=== PATIENT | female | born 1985 | race Asian ===

== ENCOUNTER 2020-12-09 22:30 | Inpatient (IN) | payer OTHER ==
[2020-12-09] MEDS ORDERED: DEXTROSE 5%-LACTATED RINGERS 1,000 ML IV SCH (23:15)
[2020-12-10 00:16] VITALS: BMI 23.6
[2020-12-10 00:22] LABS: BASO % 0.4 % (0-2.0); EOS % 1.2 % (0-4.5); HEMATOCRIT 32.2 % (32.4-45.2); HEMOGLOBIN 10.4 GM/dL (10.7-15.3); LYMPH % 29.3 % (8-40); MCH 20.9 pg (25.7-33.7); MCHC 32.2 g/dl (32.0-36.0); MEAN CELL VOLUME 64.8 fl (80-96); MEAN PLT VOLUME 8.8 fl (7.5-11.1); MONO % 9.6 % (3.8-10.2); NEUT % 59.5 % (42.8-82.8); PLATELET COUNT 205 10^3/uL (134-434); RBC 4.97 M/mm3 (3.60-5.2); RDW 15.9 % (11.6-15.6); WHITE BLOOD COUNT 9.7 K/mm3 (4.0-10.0)
[2020-12-10 00:30] LABS: INR 0.96 (0.83-1.09); PROTHROMBIN TIME (PATIENT) 10.7 SEC (9.7-13.0)
[2020-12-10 00:43] LABS: CALCIUM 8.5 mg/dL (8.5-10.1)
[2020-12-10] MEDS ORDERED: OXYTOCIN 30 UNITS in 0.9% NS 30 UNIT/500 ML INFUS.BAG IVPB SCH (00:45)
[2020-12-10 00:47] LABS: CREATININE 0.6 mg/dL (0.55-1.3)
[2020-12-10] MEDS ORDERED: ELECTROLYTE-148 SOLN 1,000 ML IV SCH (08:15)
[2020-12-10 09:40] LABS: POC NITRAZINE POS
[2020-12-10] MEDS ORDERED: ONDANSETRON 4 MG/2 ML VIAL IVPUSH PRN (10:35)
[2020-12-10] MEDS ORDERED: morphine SULFATE/PF 1 MG/2 ML (2cc Syringe - QUVA) EP ONE (10:35)
[2020-12-10] MEDS ORDERED: morphine SULFATE (PF) 1 MG/2 ML SYRINGE ONE (10:52)
[2020-12-10] MEDS ORDERED: ceFAZolin SODIUM 1 GM VIAL ONE ×2 (10:53→18:18)
[2020-12-10] MEDS ORDERED: METHYLERGONOVINE MALEATE 0.2 MG/1 ML AMP IM PRN (11:04)
[2020-12-10] MEDS ORDERED: IBUPROFEN 800 MG/8 ML IJ IVPB PRN (11:04)
[2020-12-10] MEDS ORDERED: PHENYLEPHRINE HCL 10 MG/1 ML SINGLE DOSE VIAL ONE (11:14)
[2020-12-10] MEDS ORDERED: OXYTOCIN 10 UNIT/ML 10ML MDV ONE (11:19)
[2020-12-10] MEDS ORDERED: MEPERIDINE HCL 50 MG/ML VIAL ONE (11:43)
[2020-12-10] MEDS ORDERED: ONDANSETRON 4 MG/2 ML VIAL ONE (11:50)
[2020-12-10] MEDS ORDERED: KETOROLAC TROMETHAMINE 30 MG/1 ML VIAL ONE (11:50)
[2020-12-10 12:24] LABS: CORD BASE EXCESS -3.4 mmol/L (0-2); CORD HCO3 22.1 mmHg (20-29); CORD PCO2 41.7 mmHg (30-78); CORD pH 7.343 (7.14-7.44)
[2020-12-10 12:39] LABS: CORD BASE EXCESS -3.7 mmol/L (0-2); CORD HCO3 24.7 mmHg (20-29); CORD PCO2 58.6 mmHg (30-78); CORD pH 7.242 (7.14-7.44)
[2020-12-10] MEDS ORDERED: CITRIC ACID/SODIUM CITRATE 30 ML UNIT-DOSE CUP PO ONE (14:00)
[2020-12-10] MEDS ORDERED: OXYTOCIN 20 UNITS in 0.9% NS 20 UNIT/1,000 ML INFUS.BAG IV ONE (14:28)
[2020-12-10] MEDS ORDERED: DEXTROSE 5%-WATER - 50 ML IVPB ONE (18:18)
[2020-12-10] MEDS: CEFAZOLIN 1 GM in DEXTROSE 5%-WATER - 1 GM/50 ML IVPB IVPB SCH (18:26)
[2020-12-11] MEDS ORDERED: DEXTROSE 5%-WATER - 50 ML IVPB ONE ×2 (01:01→09:41)
[2020-12-11] MEDS ORDERED: ceFAZolin SODIUM 1 GM VIAL ONE ×2 (01:01→09:41)
[2020-12-11] MEDS: CEFAZOLIN 1 GM in DEXTROSE 5%-WATER - 1 GM/50 ML IVPB IVPB SCH ×2 (01:20→09:46)
[2020-12-11 07:57] LABS: BASO % 0.7 % (0-2.0); EOS % 1.3 % (0-4.5); HEMATOCRIT 30.1 % (32.4-45.2); HEMOGLOBIN 9.6 GM/dL (10.7-15.3); LYMPH % 13.5 % (8-40); MCH 20.7 pg (25.7-33.7); MCHC 31.7 g/dl (32.0-36.0); MEAN CELL VOLUME 65.4 fl (80-96); MEAN PLT VOLUME 8.7 fl (7.5-11.1); MONO % 5.3 % (3.8-10.2); NEUT % 79.2 % (42.8-82.8); PLATELET COUNT 182 10^3/uL (134-434); RDW 15.7 % (11.6-15.6); WHITE BLOOD COUNT 12.3 K/mm3 (4.0-10.0)
[2020-12-11] MEDS: IBUPROFEN 600 MG TABLET (FP) PO PRN ×3 (08:22→21:22)
[2020-12-11] MEDS: SIMETHICONE 80 MG TAB.CHEW (FP) PO PRN ×2 (08:22→15:12)
[2020-12-11] MEDS: ENOXAPARIN NA (PORCINE) 40 MG/0.4 ML DISP.SYRIN SQ SCH (09:46)
[2020-12-11] MEDS: PRENATAL VITAMINS W/ FOLIC ACID TABLET (FP) PO SCH (09:46)
[2020-12-11] MEDS ORDERED: BISACODYL 10 MG SUPP.RECT RC PRN (11:04)
[2020-12-12] MEDS: PRENATAL VITAMINS W/ FOLIC ACID TABLET (FP) PO SCH (10:25)
[2020-12-12] MEDS: ENOXAPARIN NA (PORCINE) 40 MG/0.4 ML DISP.SYRIN SQ SCH (10:27)
[2020-12-12] MEDS: SIMETHICONE 80 MG TAB.CHEW (FP) PO PRN ×2 (10:59→22:36)
[2020-12-12] MEDS: IBUPROFEN 600 MG TABLET (FP) PO PRN ×2 (10:59→22:36)
[2020-12-13 08:36] LABS: BASO % 0.4 % (0-2.0); EOS % 1.9 % (0-4.5); HEMATOCRIT 28.4 % (32.4-45.2); HEMOGLOBIN 9.2 GM/dL (10.7-15.3); LYMPH % 18.6 % (8-40); MCH 21.2 pg (25.7-33.7); MCHC 32.4 g/dl (32.0-36.0); MEAN CELL VOLUME 65.6 fl (80-96); MEAN PLT VOLUME 9.1 fl (7.5-11.1); MONO % 6.8 % (3.8-10.2); NEUT % 72.3 % (42.8-82.8); PLATELET COUNT 221 10^3/uL (134-434); RBC 4.33 M/mm3 (3.60-5.2); RDW 15.7 % (11.6-15.6); WHITE BLOOD COUNT 10.1 K/mm3 (4.0-10.0)
[2020-12-13] MEDS: ENOXAPARIN NA (PORCINE) 40 MG/0.4 ML DISP.SYRIN SQ SCH (09:45)
[2020-12-13] MEDS: IBUPROFEN 600 MG TABLET (FP) PO PRN ×3 (09:45→22:15)
[2020-12-13] MEDS: PRENATAL VITAMINS W/ FOLIC ACID TABLET (FP) PO SCH (09:45)
[2020-12-13 12:04] LABS: ANISOCYTOSIS 1+; MACROCYTOSIS 0; OVALOCYTE 1+; PLATELET ESTIMATE NORMAL
[2020-12-13 21:45] VITALS: TEMP 98.4
[2020-12-13] MEDS: SIMETHICONE 80 MG TAB.CHEW (FP) PO PRN (22:15)
[2020-12-14 09:38] VITALS: BP 126/89; PULSE 99
[2020-12-14] MEDS: PRENATAL VITAMINS W/ FOLIC ACID TABLET (FP) PO SCH (10:28)
[2020-12-14] MEDS: ENOXAPARIN NA (PORCINE) 40 MG/0.4 ML DISP.SYRIN SQ SCH (10:28)
== END 2020-12-14 11:35 | disposition home or self-care (01) | DRG 788 ==
LOC: JDEL 22:30 → JLDR 23:00 → J3W 12-10 14:48
PROVIDERS: ADMIT Obstetrics & Gynecology; ATTEND Obstetrics & Gynecology
PROC: 10D00Z1 Extraction of Products of Conception, Low, Open Approach (ICD-10-PCS; principal; 2020-12-10)
DX: O32.1XX0 Maternal care for breech presentation, not applicable or unspecified (principal); O34.13 Maternal care for benign tumor of corpus uteri, third trimester; D25.9 Leiomyoma of uterus, unspecified; O42.92 Full-term premature rupture of membranes, unspecified as to length of time between rupture and onset of labor; O69.81X0 Labor and delivery complicated by cord around neck, without compression, not applicable or unspecified; Z3A.37 37 weeks gestation of pregnancy; Z37.0 Single live birth
CPT/HCPCS: 36415; 36600; 80048; 82803; 83986-QW; 85025; 85610; 85730; 86780; 86850; 86900; 86901; C9803; J2175; U0003; U0005

== ENCOUNTER 2022-11-23 08:00 | Inpatient (IN) | payer OTHER ==
[2022-12-07 09:33] VITALS: BMI 27.2
[2022-12-07] MEDS ORDERED: OXYTOCIN 30 UNITS in 0.9% NS 30 UNIT/500 ML INFUS.BAG IVPB SCH (10:15)
[2022-12-07] MEDS: ELECTROLYTE-148 SOLN 1,000 ML IV SCH ×2 (10:42→12:19)
[2022-12-07] MEDS ORDERED: OXYTOCIN 30 UNITS in 0.9% NS 30 UNIT/500 ML INFUS.BAG IVPB ONE (10:50)
[2022-12-07] MEDS ORDERED: NALOXONE HCL 0.4 MG/ML VIAL IVPUSH PRN (11:24)
[2022-12-07] MEDS ORDERED: BUPIVACAINE HCL/PF 0.25% (2.5MG/ML) 10 ML VIAL ONE (11:30)
[2022-12-07] MEDS ORDERED: LIDOCAINE HCL/EPINEPHRINE/PF 10 ML VIAL ONE (11:30)
[2022-12-07] MEDS ORDERED: FENTANYL/BUPIVACAINE/NS/PF - PCEA - 50 ML DISP.SYRIN EP ONE ×4 (11:34→23:11)
[2022-12-07] MEDS: FENTANYL/BUPIVACAINE/NS/PF - PCEA - 50 ML DISP.SYRIN EP SCH ×4 (11:40→23:45)
[2022-12-07] MEDS ORDERED: OXYTOCIN 20 UNITS in 0.9% NS 20 UNIT/1,000 ML INFUS.BAG IV ONE (23:23)
[2022-12-08 01:36] LABS: CORD BASE EXCESS -10.4 mmol/L (0-2); CORD HCO3 18.5 mmHg (20-29); CORD PCO2 51.4 mmHg (30-78); CORD pH 7.173 (7.14-7.44); HEMATOCRIT 32.2 % (32.4-45.2); HEMOGLOBIN 10.2 GM/dL (10.7-15.3); MCH 20.2 pg (25.7-33.7); MCHC 31.7 g/dl (32.0-36.0); MEAN CELL VOLUME 63.5 fl (80-96); MEAN PLT VOLUME 8.4 fl (7.5-11.1); PLATELET COUNT 203 10^3/uL (134-434); RBC 5.07 M/mm3 (3.60-5.2); RDW 16.5 % (11.6-15.6); WHITE BLOOD COUNT 15.2 K/mm3 (4.0-10.0)
[2022-12-08] MEDS ORDERED: TRANEXAMIC ACID 1000 MG/10 ML VIAL ONE (01:40)
[2022-12-08] MEDS ORDERED: TRANEXAMIC ACID 1000 MG/10 ML VIAL IVPB ONE (01:44)
[2022-12-08 01:47] LABS: INR 1.03 (0.83-1.09); PROTHROMBIN TIME (PATIENT) 11.9 SEC (9.7-13.0)
[2022-12-08] MEDS ORDERED: CEFAZOLIN SODIUM 2 GM VIAL ONE (01:54)
[2022-12-08] MEDS ORDERED: METHYLERGONOVINE MALEATE 0.2 MG/1 ML AMP IM PRN (02:06)
[2022-12-08] MEDS ORDERED: WITCH HAZEL 50% (TUCKS) 40 PAD/JAR PAD TP PRN (02:06)
[2022-12-08] MEDS ORDERED: ACETAMINOPHEN 325 MG TABLET (FP) PO PRN (02:06)
[2022-12-08] MEDS ORDERED: BENZOCAINE 28 GM HEMORRHOIDAL OINTMENT TP PRN (02:06)
[2022-12-08] MEDS ORDERED: BISACODYL 10 MG SUPP.RECT RC PRN (02:06)
[2022-12-08] MEDS ORDERED: OXYTOCIN 20 UNITS in 0.9% NS 20 UNIT/1,000 ML INFUS.BAG IV SCH (02:15)
[2022-12-08] MEDS ORDERED: CARBOPROST TROMETHAMINE 250 MCG/ML AMPUL IM ONE (02:45)
[2022-12-08] MEDS: IBUPROFEN 600 MG TABLET (FP) PO PRN ×3 (04:31→20:57)
[2022-12-08 05:54] LABS: ANISOCYTOSIS 3+; MACROCYTOSIS 0; ROULEAU 2+; TEAR DROP CELLS 1+
[2022-12-08] MEDS ORDERED: CEFAZOLIN SODIUM 2 GM VIAL IVPB SCH (10:00)
[2022-12-08] MEDS: CEFAZOLIN SODIUM 2 GM in DEXTROSE 5%-WATER 100 ML IVPB SCH ×2 (10:37→17:32)
[2022-12-08 11:28] LABS: HEMATOCRIT 28.8 % (32.4-45.2); MCH 21.5 pg (25.7-33.7); MCHC 31.1 g/dl (32.0-36.0); MEAN CELL VOLUME 69.3 fl (80-96); MEAN PLT VOLUME 8.1 fl (7.5-11.1); PLATELET COUNT 187 10^3/uL (134-434); RBC 4.16 M/mm3 (3.60-5.2); RDW 17.5 % (11.6-15.6); WHITE BLOOD COUNT 17.2 K/mm3 (4.0-10.0)
[2022-12-08 14:19] LABS: POC NITRAZINE POS
[2022-12-08] MEDS: FENTANYL/BUPIVACAINE/NS/PF - PCEA - 50 ML DISP.SYRIN EP SCH (20:01)
[2022-12-08] MEDS: SENNOSIDES/DOCUSATE COMBO (SENNA PLUS) TABLET (UD) PO SCH (22:37)
[2022-12-09] MEDS: CEFAZOLIN SODIUM 2 GM in DEXTROSE 5%-WATER 100 ML IVPB SCH (02:13)
[2022-12-09 07:53] LABS: BASO % 0.3 % (0-2.0); EOS % 0.3 % (0-4.5); HEMOGLOBIN 7.7 GM/dL (10.7-15.3); LYMPH % 13.2 % (8-40); MCH 21.7 pg (25.7-33.7); MCHC 32.1 g/dl (32.0-36.0); MEAN CELL VOLUME 67.7 fl (80-96); MEAN PLT VOLUME 8.3 fl (7.5-11.1); MONO % 7.1 % (3.8-10.2); NEUT % 79.1 % (42.8-82.8); PLATELET COUNT 174 10^3/uL (134-434); RBC 3.55 M/mm3 (3.60-5.2); RDW 18.5 % (11.6-15.6); WHITE BLOOD COUNT 13.1 K/mm3 (4.0-10.0)
[2022-12-09] MEDS: IBUPROFEN 600 MG TABLET (FP) PO PRN ×3 (08:27→21:12)
[2022-12-09] MEDS: SENNOSIDES/DOCUSATE COMBO (SENNA PLUS) TABLET (UD) PO SCH (21:10)
[2022-12-09 21:59] VITALS: RESP 18
[2022-12-10 12:05] VITALS: BP 101/65; PULSE 90; TEMP 98.1
== END 2022-12-10 12:55 | disposition home or self-care (01) | DRG 768 ==
LOC: JLDR 12-07 08:45 → J3W 12-08 03:51
PROVIDERS: ADMIT Obstetrics & Gynecology; ATTEND Obstetrics & Gynecology
PROC: 10D07Z6 Extraction of Products of Conception, Vacuum, Via Natural or Artificial Opening (ICD-10-PCS; principal; 2022-12-08)
PROC: 0DQR0ZZ Repair Anal Sphincter, Open Approach (ICD-10-PCS; 2022-12-08)
DX: O42.92 Full-term premature rupture of membranes, unspecified as to length of time between rupture and onset of labor (principal); Z37.0 Single live birth; O70.20 Third degree perineal laceration during delivery, unspecified; O72.1 Other immediate postpartum hemorrhage; O90.81 Anemia of the puerperium; Z3A.38 38 weeks gestation of pregnancy
CPT/HCPCS: 36415; 36430; 36600; 82803; 83986-QW; 85025; 85027; 85610; 86850; 86900; 86901; 86922; 88307-TC; P9058

== ENCOUNTER 2024-04-09 13:26 | Emergency (ER) | payer BC ==
[2024-04-09 13:37] VITALS: BP 102/88; PULSE 74; RESP 18; TEMP 98.6; BMI 27.4
== END 2024-04-09 14:42 | disposition home or self-care (01) ==
LOC: JERFT 13:26
DX: H10.33 Unspecified acute conjunctivitis, bilateral (principal)
CPT/HCPCS: 99283-25